=== PATIENT | male | born 1940 | race Caucasian/White ===

== ENCOUNTER → 2016-07-01 | Outpatient (CLI) | payer MEDICARE, OTHER | LOC: RAD 10:53 | PROVIDERS: ATTEND Internal Medicine Medical Oncology | DX: C71.9 Malignant neoplasm of brain, unspecified (principal) | CPT/HCPCS: 70553; A9577 ==

== ENCOUNTER → 2017-03-03 | Outpatient (CLI) | payer MEDICARE, OTHER ==
--- NOTE | 2017-03-03 13:26 | RADIOLOGY REPORT (SQ) ---
EXAM DESCRIPTION: MRI HEAD COMBO COMPLETED DATE/TIME: 03/03/2017 11:08 am REASON FOR STUDY: MALIGNANT NEOPLASM OF BRAIN C71.9 MALIGNANT NEOPLASM OF BRAIN, UNSPECIFIED Grade 4 GBM COMPARISON: 03/24/2008, 01/02/2015, 11/06/2015, 07/01/2016 TECHNIQUE: Multiplanar imaging includes noncontrasted T1, T2, FLAIR, diffusion with ADC map and post gadolinium contrast T1 sequences. Images stored on PACS. CONTRAST TYPE AND DOSE: 10 mL Multihance. RENAL FUNCTION: Estimated GFR 58 LIMITATIONS: None. FINDINGS: ANATOMY: No congenital anomalies. Normal vascular flow voids. Pituitary fossa normal. CSF SPACES: Normal in size and contour. No hemorrhage. CEREBRUM: Post left posterior temporal/ parietal craniotomy with a 4 x 3.4 cm operative cavity with c ystic encephalomalacia. Along the deep aspect of the cavity, there is thin rim contrast enhancement, similar compared to 07/01/2016. This is best shown on axial images 14-16 and coronal image 31. Overa ll appearance of the operative cavity and surrounding FLAIR/ T2 signal from gliosis as compared to 07/01/2016. Remainder of the brain parenchyma is otherwise unremarkable. No other masses or enhancement. No hem orrhage. No midline shift. POSTERIOR FOSSA: No signal alteration. No hemorrhage. No edema, masses, or mass effect. Internal andra tory canals, cerebellopontine angles, mastoids normal. No enhancing lesions. No abnormal enhancement post contrast. DIFFUSION IMAGING: Negative for acute or subacute infarction. ORBITS: No masses. Globes normal. PARANASAL SINUSES: No fluid levels. Mucosa normal. OTHER: No other significant finding. IMPRESSION: Left posterior temporal/parietal operative cavity within the lobe cyst along the deep as pect. This is similar compared to 07/01/2016 EVIDENCE OF ACUTE STROKE: NO. TECHNICAL DOCUMENTATION: JOB ID: [id number] [employer]- All Rights Reserved
== END ==
LOC: RAD 10:02
PROVIDERS: ATTEND Internal Medicine Medical Oncology
DX: C71.9 Malignant neoplasm of brain, unspecified (principal)
CPT/HCPCS: 82565; 70553; A9577

== ENCOUNTER → 2017-07-08 | Outpatient (CLI) | payer MEDICARE, OTHER ==
--- NOTE | 2017-07-08 13:36 | RADIOLOGY REPORT (SQ) ---
EXAM DESCRIPTION: MRI HEAD COMBO COMPLETED DATE/TIME: 07/08/2017 12:58 pm REASON FOR STUDY: C71.9 MALIGNANT NEOPLASM OF BRAIN, UNSPECIFIED C71.9 MALIGNANT NEOPLASM OF BRAIN, UNSPECIFIED COMPARISON: 03/03/2017. 2017. TECHNIQUE: Multiplanar imaging includes noncontrasted T1, T2, FLAIR, diffusion with ADC map and post gadolinium contrast T1 sequences. Images stored on PACS. CONTRAST TYPE AND DOSE: 10 mL MultiHance RENAL FUNCTION: GFR 53 LIMITATIONS: None. FINDINGS: ANATOMY: No anomalies. Normal vascular flow voids. Pituitary fossa normal. CSF SPACES: Normal in size and contour. No hemorrhage. CEREBRUM: Left resection cavity measures 4 x 4.7 cm AP by transverse, fairly similar appearance yolanda red to prior. On most sequences, this is close to CSF intensity. There is some faint peripheral/ th in septal enhancement superiorly which looks relatively stable. No developing lesions. No increasin g mass effect on adjacent tissues. Adjacent high T2 signal in the white matter looks similar. POSTERIOR FOSSA: No signal alteration. No hemorrhage. No edema, masses, or mass effect. Internal andra tory canals, cerebellopontine angles, mastoids normal. No enhancing lesions. No abnormal enhancement post contrast. DIFFUSION IMAGING: Negative for acute or subacute infarction. ORBITS: No masses. Globes normal. PARANASAL SINUSES: No fluid levels. Mucosa normal. OTHER: No other significant finding. IMPRESSION: 1. Chronic resection changes in the left cerebrum. Relatively similar size of the resec tion cavity with minimal faint peripheral persistent none progressive enhancement. No new lesions. No developing mass effect or shift. EVIDENCE OF ACUTE STROKE: NO. TECHNICAL DOCUMENTATION: JOB ID: [id number] [employer]- All Rights Reserved Reading location - IP/workstation name: [email or web address]
== END ==
LOC: RAD 14:15
PROVIDERS: ATTEND Internal Medicine Medical Oncology
DX: C71.9 Malignant neoplasm of brain, unspecified (principal)
CPT/HCPCS: 82565; 70553; A9577

== ENCOUNTER → 2017-11-03 | Outpatient (CLI) | payer MEDICARE, OTHER ==
--- NOTE | 2017-11-03 14:15 | RADIOLOGY REPORT (SQ) ---
EXAM DESCRIPTION: MRI HEAD COMBO COMPLETED DATE/TIME: 11/03/2017 1:18 pm REASON FOR STUDY: C71.9 MALIGNANT NEOPLASM OF BRAIN, UNSPECIFIED C71.9 MALIGNANT NEOPLASM OF BRAIN, UNSPECIFIED COMPARISON: MRI brain 03/24/2008, 11/06/2015, 03/03/2017, 07/08/2017 TECHNIQUE: Multiplanar imaging includes noncontrasted T1, T2, FLAIR, diffusion with ADC map and post gadolinium contrast T1 sequences. Images stored on PACS. CONTRAST TYPE AND DOSE: 15 mL Dotarem. RENAL FUNCTION: Estimated GFR 58 LIMITATIONS: None. FINDINGS: ANATOMY: No anomalies. Normal vascular flow voids. Pituitary fossa normal. CSF SPACES: Normal in size and contour. No hemorrhage. CEREBRUM: Old left parietal craniotomy with fluid-filled cystic encephalomalacia in the left parietal lobe. There is minimal hemosiderin staining around the periphery of the cavity, and minimal thin ri m contrast enhancement. On today's study, the area of cystic encephalomalacia deep to the craniotomy measures 5.2 x 5.2 cm in size (was 4.8 x 4.6 cm on 03/03/2017, was 4.2 x 3.3 cm on 11/06/2015, was 2.4 x 2 cm on immediate postoperative MRI 03/24/2008). There is increased FLAIR/T2 signal in the parenchyma adjacent to the left parietal cystic encephaloma lacia, either post radiation change or gliosis. This is similar compared to 07/08/2017, 03/13/2017 and 11/06/2015. POSTERIOR FOSSA: No signal alteration. No hemorrhage. No edema, masses, or mass effect. Internal andra tory canals, cerebellopontine angles, mastoids normal. No enhancing lesions. No abnormal enhancement post contrast. DIFFUSION IMAGING: Negative for acute or subacute infarction. ORBITS: No masses. Globes normal. PARANASAL SINUSES: No fluid levels. Mucosa normal. OTHER: No other significant finding. IMPRESSION: Cystic encephalomalacia left parietal lobe, with surrounding gliosis or edema. Size of the cystic cavity has slowly increased over the series of exams EVIDENCE OF ACUTE STROKE: NO. TECHNICAL DOCUMENTATION: JOB ID: [id number] [employer]- All Rights Reserved Reading location - IP/workstation name: [email or web address]
== END ==
LOC: RAD 14:57
PROVIDERS: ATTEND Internal Medicine Medical Oncology
DX: C71.9 Malignant neoplasm of brain, unspecified (principal); G93.89 Other specified disorders of brain
CPT/HCPCS: 82565; 70553; A9576

== ENCOUNTER 2017-11-18 03:50 | Emergency (ER) | payer MEDICARE, OTHER ==
[2017-11-18 03:56] VITALS: BP 127/60
--- NOTE | 2017-11-18 04:36 | RADIOLOGY REPORT (SQ) ---
EXAM DESCRIPTION: CT HEAD WITHOUT IV CONTRAST COMPLETED DATE/TME: 11/18/2017 00:00 CLINICAL HISTORY: 77 years Male, injury on thinners COMPARISON: 9.11.18 TECHNIQUE: No contrast. Coronal and sagittal reformat. This exam was performed according to our departmental dose-optimization program, which includes automated exposure control, adjustment of the mA and/or kV according to patient size and/or use of iterative reconstruction technique. FINDINGS: No hemorrhage. 5.5 cm chronic cystic encephalomalacia pattern of the left parietal lobe, moderate white matter microangiopathy, mild parenchymal volume loss, atherosclerosis, left parietal craniotomy. No midline shift. Brain and extra-axial structures appear otherwise intact. Stable. IMPRESSION: No acute findings.
[2017-11-18] MEDS ORDERED: ACETAMINOPHEN 325 MG TABLET PO ONE (05:21)
[2017-11-18] MEDS ORDERED: LIDOCAINE 5% (700 MG) TRANSDERMAL ADH..PATCH TP ONE (05:21)
--- NOTE | 2017-11-18 05:36 | RADIOLOGY REPORT (SQ) ---
EXAM DESCRIPTION: XR SHOULDER 2 OR MORE VIEWS COMPLETED DATE/TME: 11/18/2017 03:55 CLINICAL HISTORY: 77 years Male, fall COMPARISON: 3.4.16 Findings: Fracture-deformity of the distal left clavicular shaft with palmar moderate superior angulation, relatively new compared with prior available radiographs from April 27, 2015. Bones, joints, and soft tissues of the LEFT XR SHOULDER 3 VIEWS appear otherwise intact. IMPRESSION: Fracture-deformity of the left distal clavicular shaft, indeterminate age.
--- NOTE | 2017-11-18 05:45 | RADIOLOGY REPORT (SQ) ---
Left elbow four view on 11/18/2017 at 5:32 AM CLINICAL INDICATION: Left elbow pain after fall COMPARISON: None FINDINGS: There is diffuse osteopenia. Joint effusion is noted in the elbow. Definite fracture is not visualized but the joint effusion is indicative of occult fracture. Visualized joints are well aligned. IMPRESSION: Joint effusion in the elbow indicative of occult fracture. Most likely location in this age patient would be of the radial head.
--- NOTE | 2017-11-18 06:02 | ER Document Report ---
ED General - General Chief Complaint: Fall Injury Stated Complaint: LEFT SHOULDER PAIN Time Seen by Provider: 11/18/17 04:02 TRAVEL OUTSIDE OF THE [place] IN LAST 30 DAYS: No - HPI Patient complains to provider of: Fall Notes: Patient coming in for evaluation of a fall. Patient states he was walking the stairs with his walker lost his balance fell down landing on his left side currently complaining of left shoulder pain left elbow pain. Patient also does have abrasion to the front of his head did not tell the nursing staff that he was on blood thinning medications protocol and CT head and x-rays upon further evaluation patient states he is on aspirin. Patient denies any loss of consciousness syncopal episode chest pain abdominal pain before or after the fall. Resting comfortably upon my evaluation. - Related Data Allergies/Adverse Reactions: simvastatin [From Zocor] Allergy (Unknown, Verified 04/26/15 12:15) Past Medical History - Social History Smoking Status: Unknown if Ever Smoked Family History: Reviewed & Not Pertinent Patient has suicidal ideation: No Patient has homicidal ideation: No - Past Medical History Cardiac Medical History: Reports: Hx Coronary Artery Disease - 5 or 6 stents most recently in 2004, Hx Heart Attack - x2, Hx Hypercholesterolemia, Hx Hypertension Neurological Medical History: Reports: Hx Cerebrovascular Accident - History of TIA Endocrine Medical History: Reports: Hx Diabetes Mellitus Type 2, Hx Hypothyroidism Renal/ Medical History: Reports: Hx Benign Prostatic Hyperplasia. Denies: Hx Peritoneal Dialysis Malignancy Medical History: Reports Hx Brain Cancer - glioblastoma GI Medical History: Reports: Hx Gastroesophageal Reflux Disease Past Surgical History: Reports: Hx Cardiac Catheterization, Hx Cardiac Surgery - stents, Hx Orthopedic Surgery - Immunizations Hx Diphtheria, Pertussis, Tetanus Vaccination: Yes Hx Pneumococcal Vaccination: 11/23/10 Review of Systems - Review of Systems Constitutional: No symptoms reported EENT: No symptoms reported Cardiovascular: No symptoms reported Respiratory: No symptoms reported Gastrointestinal: No symptoms reported Genitourinary: No symptoms reported Male Genitourinary: No symptoms reported Musculoskeletal: Other - Shoulder elbow pain Skin: No symptoms reported Hematologic/Lymphatic: No symptoms reported Neurological/Psychological: No symptoms reported Physical Exam - Vital signs Vitals: Temp Pulse Resp BP Pulse Ox 97.8 F 69 20 127/60 H 95 11/18/17 03:55 11/18/17 03:55 11/18/17 03:55 11/18/17 03:55 11/18/17 03:55 Interpretation: Normal - General General appearance: Appears well, Alert - HEENT Head: Normocephalic. No: Atraumatic - Abrasion to the left forehead Eyes: Normal Conjunctiva: Normal Cornea: Normal Pupils: PERRL Ears: Other - Hematoma of the left pinna External canal: Normal Tympanic membrane: Normal Nasal: Normal Pharynx: Normal Neck: Normal Notes: Tenderness to palpation of the left clavicle region lateral - Respiratory Respiratory status: No respiratory distress Chest status: Nontender Breath sounds: Normal Chest palpation: Normal - Cardiovascular Rhythm: Regular Heart sounds: Normal auscultation Murmur: No - Abdominal Inspection: Normal Distension: No distension Bowel sounds: Normal Tenderness: Nontender Organomegaly: No organomegaly - Back Back: Normal, Nontender - Extremities General upper extremity: Normal color, Normal ROM, Normal temperature. No: Normal inspection - Tenderness palpation of the left elbow General lower extremity: Normal inspection, Nontender, Normal color, Normal ROM , Normal temperature - Neurological Neuro grossly intact: Yes Cognition: Normal Orientation: AAOx4 Daya Coma Scale Eye Opening: Spontaneous Daya Coma Scale Verbal: Oriented Daya Coma Scale Motor: Obeys Commands Ewing Coma Scale Total: 15 Speech: Normal Motor strength normal: LUE, RUE, LLE, RLE Sensory: Normal - Psychological Associated symptoms: Normal affect, Normal mood - Skin Skin Temperature: Warm Skin Moisture: Dry Skin Color: Normal Course - Re-evaluation Re-evalutation: 11/18/17 06:08 CT of the head negative for any acute traumatic findings. Shoulder x-ray shows a clavicle fracture looks to be healing with good callus formation however personal read cannot rule out an acute illness patient is tender patient does have a cell sign on the elbow x-ray cannot rule out an occult fracture. This information was discussed with the patient patient is to follow-up with his orthopedic doctor on Thursday for his leg pain states that he will take images to his orthopedics at that time. Patient will be given a CD sling will be provided at this time for comfort for the patient patient will be discharged home. - Vital Signs Vital signs: Temp Pulse Resp BP Pulse Ox 97.8 F 69 20 127/60 H 95 11/18/17 03:55 11/18/17 03:55 11/18/17 03:55 11/18/17 03:55 11/18/17 03:55 Discharge - Discharge Clinical Impression: Hematoma of pinna, Facial abrasion, Clavicle fracture, Possible occult fracture left elbow Condition: Good Disposition: HOME, SELF-CARE Instructions: Abrasions of the Face ([facility]) Additional Instructions: CT scan of your head today does not show any acute traumatic findings. X-ray of your shoulder reveals a clavicle fracture that looks to be healing and old although a new component cannot be ruled out also the x-ray of the elbow reveal signs of a possible occult fracture or small fracture that we cannot see on x-ray at this time. We will place you in a shoulder sling she can wear for comfort for the next 7-10 days recommend taking Tylenol for pain control follow- up with your orthopedic physician or primary disabilities caregiver for repeat x-rays in the next 7-10 days. Return to ER for any concerning issues please place triple antibiotic ointment on your abrasions. Referrals: BG LYONS PA-C [Primary Care Provider] - Follow up as needed
== END 2017-11-18 06:37 | disposition home or self-care (01) ==
LOC: ER 03:50
DX: S00.81XA Abrasion of other part of head, initial encounter (principal); S42.002A Fracture of unspecified part of left clavicle, initial encounter for closed fracture; M25.522 Pain in left elbow; W01.0XXA Fall on same level from slipping, tripping and stumbling without subsequent striking against object, initial encounter; I25.10 Atherosclerotic heart disease of native coronary artery without angina pectoris; E11.9 Type 2 diabetes mellitus without complications; E03.9 Hypothyroidism, unspecified; Z86.73 Personal history of transient ischemic attack (TIA), and cerebral infarction without residual deficits; I25.2 Old myocardial infarction; Z85.841 Personal history of malignant neoplasm of brain
CPT/HCPCS: 99284; 73080; 73030; 70450; A9270

== ENCOUNTER → 2018-02-03 | Outpatient (CLI) | payer MEDICARE, OTHER ==
--- NOTE | 2018-02-03 14:14 | RADIOLOGY REPORT (SQ) ---
EXAM DESCRIPTION: MRI HEAD COMBO COMPLETED DATE/TIME: 02/03/2018 1:20 pm REASON FOR STUDY: C71.9 MALIGNANT NEOPLASM OF BRAIN,UNSPECIFIED C71.9 MALIGNANT NEOPLASM OF BRAIN, UNSPECIFIED COMPARISON: 11/03/2017, 07/08/2017, 03/03/2017, 07/01/2016, 05/08/2015, 12/05/2010, 01/04/2009 TECHNIQUE: Multiplanar imaging includes noncontrasted T1, T2, FLAIR, diffusion with ADC map and post gadolinium contrast T1 sequences. Images stored on PACS. CONTRAST TYPE AND DOSE: 10 mL Dotarem. RENAL FUNCTION: GFR 48 LIMITATIONS: None. FINDINGS: ANATOMY: No anomalies. Normal vascular flow voids. Pituitary fossa normal. CSF SPACES: Normal in size and contour. No hemorrhage. CEREBRUM: Old left parietal craniotomy with fluid-filled cystic encephalomalacia in the left parietal region, measuring 5 cm craniocaudad by 5 point 2 cm AP x 5.2 cm transverse. This is similar compare d to 11/03/2017. On the post contrasted images, minimal peripheral rim enhancement is present similar compared to prior exams. There is stable surrounding gliosis in the left posterior temporal and par ietal and posterior frontal regions. Remainder of the supratentorial brain is otherwise unremarkable. No hemorrhage. No mass effect or m idline shift. POSTERIOR FOSSA: No signal alteration. No hemorrhage. No edema, masses, or mass effect. Internal andra tory canals, cerebellopontine angles, mastoids normal. No enhancing lesions. No abnormal enhancement post contrast. DIFFUSION IMAGING: Negative for acute or subacute infarction. ORBITS: No masses. Globes normal. PARANASAL SINUSES: No fluid levels. Mucosa normal. OTHER: No other significant finding. IMPRESSION: Stable postoperative changes compared to 11/03/2017. EVIDENCE OF ACUTE STROKE: NO. TECHNICAL DOCUMENTATION: JOB ID: [id number] [employer]- All Rights Reserved Reading location - IP/workstation name: [email or web address]
== END ==
LOC: RAD 13:17
PROVIDERS: ATTEND Internal Medicine Medical Oncology
DX: C71.9 Malignant neoplasm of brain, unspecified (principal)
CPT/HCPCS: 82565; 70553; A9576

== ENCOUNTER → 2018-07-29 | Outpatient (CLI) | payer MEDICARE, OTHER ==
--- NOTE | 2018-07-29 13:29 | RADIOLOGY REPORT (SQ) ---
EXAM DESCRIPTION: MRI HEAD COMBO COMPLETED DATE/TIME: 07/29/2018 1:04 pm REASON FOR STUDY: C71.9 MALIGNANT NEOPLASM OF BRAIN, UNSPECIFIED C71.9 MALIGNANT NEOPLASM OF BRAIN, UNSPECIFIED COMPARISON: 02/03/2018, 07/08/2017, and 03/03/2017. TECHNIQUE: Multiplanar imaging includes noncontrasted T1, T2, FLAIR, diffusion with ADC map and post gadolinium contrast T1 sequences. Images stored on PACS. CONTRAST TYPE AND DOSE: 15 mL Dotarem. RENAL FUNCTION: Not indicated. ACR Type II contrast agent associated with few, if any, unconfounded cases of NSF LIMITATIONS: None. FINDINGS: ANATOMY: No anomalies. Normal vascular flow voids. Pituitary fossa normal. CSF SPACES: Normal in size and contour. No hemorrhage. CEREBRUM: Again seen are surgical changes in the posterior left parietal lobe with fluid filled resec tion cavity, unchanged in size and appearance. Very minimal rim enhancement unchanged. Minimal glio sis in the adjacent white matter. No other significant findings. POSTERIOR FOSSA: No signal alteration. No hemorrhage. No edema, masses, or mass effect. Internal andra tory canals, cerebellopontine angles, mastoids normal. No enhancing lesions. No abnormal enhancement post contrast. DIFFUSION IMAGING: Negative for acute or subacute infarction. ORBITS: No masses. Globes normal. PARANASAL SINUSES: No fluid levels. Mucosa normal. OTHER: No other significant finding. IMPRESSION: STABLE SURGICAL CHANGES IN THE POSTERIOR LEFT PARIETAL LOBE. NO EVIDENCE OF RESIDUAL OR RECURRENT TUMOR. NO OTHER SIGNIFICANT FINDINGS. EVIDENCE OF ACUTE STROKE: NO. TECHNICAL DOCUMENTATION: JOB ID: [id number] [employer]- All Rights Reserved Reading location - IP/workstation name: [email or web address]
== END ==
LOC: RAD 12:00
PROVIDERS: ATTEND Internal Medicine Medical Oncology
DX: C71.9 Malignant neoplasm of brain, unspecified (principal)
CPT/HCPCS: 70553; 82565

== ENCOUNTER → 2018-12-02 | Outpatient (CLI) | payer MEDICARE, OTHER ==
--- NOTE | 2018-12-02 11:42 | RADIOLOGY REPORT (SQ) ---
EXAM DESCRIPTION: MRI HEAD COMBO COMPLETED DATE/TIME: 12/02/2018 11:07 am REASON FOR STUDY: MALIGNANT NEOPLASM OF BRAIN (C71.9) C71.9 MALIGNANT NEOPLASM OF BRAIN, UNSPECIFIE D COMPARISON: MRI brain 07/29/2018, 02/03/2018, 07/01/2016, 10/27/2015, 01/09/2015, 11/15/2013, 11/16/2012, TECHNIQUE: Multiplanar imaging includes noncontrasted T1, T2, FLAIR, diffusion with ADC map and post gadolinium contrast T1 sequences. Images stored on PACS. CONTRAST TYPE AND DOSE: 15 mL Dotarem. RENAL FUNCTION: Not indicated. ACR Type II contrast agent associated with few, if any, unconfounded cases of NSF LIMITATIONS: None. FINDINGS: ANATOMY: No anomalies. Normal vascular flow voids. Pituitary fossa normal. CSF SPACES: Normal in size and contour. No hemorrhage. CEREBRUM: Post left frontoparietal craniotomy. There is focal encephalomalacia in the left posterior frontal/parietal region with an operative cavity 4.4 x 4.2 x 5 cm in size. No surrounding significa nt gliosis or edema. No contrast enhancement along the periphery of the operative cavity or deep to the craniotomy flap. Remainder of the brain demonstrates minimal increased FLAIR/T2 signal in the posterior corpus callosu m likely related to prior brain radiation. No MR evidence of acute ischemic change, acute intracrani al hemorrhage, mass effect, or midline shift. POSTERIOR FOSSA: No signal alteration. No hemorrhage. No edema, masses, or mass effect. Internal andra tory canals, cerebellopontine angles, mastoids normal. No enhancing lesions. No abnormal enhancement post contrast. DIFFUSION IMAGING: Negative for acute or subacute infarction. ORBITS: No masses. Globes normal. PARANASAL SINUSES: No fluid levels. Mucosa normal. OTHER: No other significant finding. IMPRESSION: Left posterior frontal/parietal operative cavity. No findings worrisome for recurrent/r esidual tumor EVIDENCE OF ACUTE STROKE: NO. TECHNICAL DOCUMENTATION: JOB ID: [id number] [employer]- All Rights Reserved Reading location - IP/workstation name: [email or web address]
== END ==
LOC: RAD 09:56
PROVIDERS: ATTEND Internal Medicine Medical Oncology
DX: C71.9 Malignant neoplasm of brain, unspecified (principal)
CPT/HCPCS: 70553; A9576

== ENCOUNTER → 2019-06-02 | Outpatient (CLI) | payer MEDICARE, OTHER ==
--- NOTE | 2019-06-02 14:13 | RADIOLOGY REPORT (SQ) ---
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 TECHNIQUE: Multiplanar imaging includes noncontrasted T1, T2, FLAIR, diffusion with ADC map and post gadolinium contrast T1 sequences. Images stored on PACS. CONTRAST TYPE AND DOSE: 15 mL Dotarem. RENAL FUNCTION: Not indicated. ACR Type II contrast agent associated with few, if any, unconfounded cases of NSF LIMITATIONS: None. FINDINGS: ANATOMY: No anomalies. Normal vascular flow voids. Pituitary fossa normal. CSF SPACES: Normal in size and contour. No hemorrhage. CEREBRUM: Sulci and gyri normal in size and contour. Stable surgical changes in the posterior left p arietal lobe with postoperative fluid collection. Mild gliosis. No evidence of hemorrhage, mass, or extraaxial fluid collection. No abnormal enhancement post contrast. POSTERIOR FOSSA: No signal alteration. No hemorrhage. No edema, masses, or mass effect. Internal andra tory canals, cerebellopontine angles, mastoids normal. No enhancing lesions. No abnormal enhancement post contrast. DIFFUSION IMAGING: Negative for acute or subacute infarction. ORBITS: No masses. Globes normal. PARANASAL SINUSES: No fluid levels. Mucosa normal. OTHER: No other significant finding. IMPRESSION: STABLE SURGICAL CHANGES IN THE POSTERIOR LEFT PARIETAL LOBE WITH STABLE POSTOPERATIVE FL UID COLLECTION AND MILD GLIOSIS. NO EVIDENCE OF RESIDUAL OR RECURRENT TUMOR. NO OTHER SIGNIFICANT F INDINGS. EVIDENCE OF ACUTE STROKE: NO. TECHNICAL DOCUMENTATION: JOB ID: [id number] [employer]- All Rights Reserved Reading location - IP/workstation name: [email or web address]
== END ==
LOC: RAD 12:20
PROVIDERS: ATTEND Psychiatry & Neurology Neurology
DX: C71.3 Malignant neoplasm of parietal lobe (principal)
CPT/HCPCS: 70553; A9576

== ENCOUNTER → 2019-12-08 | Outpatient (CLI) | payer MEDICARE, OTHER ==
--- NOTE | 2019-12-08 13:11 | RADIOLOGY REPORT (SQ) ---
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 TECHNIQUE: Multiplanar imaging includes noncontrasted T1, T2, FLAIR, diffusion with ADC map and post gadolinium contrast T1 sequences. Images stored on PACS. CONTRAST TYPE AND DOSE: 10 mL Prohance. RENAL FUNCTION: Not indicated. ACR Type II contrast agent associated with few, if any, unconfounded cases of NSF LIMITATIONS: None. FINDINGS: ANATOMY: No anomalies. Normal vascular flow voids. Pituitary fossa normal. CSF SPACES: Normal in size and contour. No hemorrhage. CEREBRUM: Sulci and gyri normal in size and contour. Normal white matter signal on FLAIR imaging. St able surgical changes in the posterior left parietal lobe with postoperative fluid collection. Mild scoliosis in the adjacent white matter. No evidence of hemorrhage, mass, or extraaxial fluid collect ion. No abnormal enhancement post contrast. POSTERIOR FOSSA: No signal alteration. No hemorrhage. No edema, masses, or mass effect. Internal andra tory canals, cerebellopontine angles, mastoids normal. No enhancing lesions. No abnormal enhancement post contrast. DIFFUSION IMAGING: Negative for acute or subacute infarction. ORBITS: No masses. Globes normal. PARANASAL SINUSES: No fluid levels. Mucosa normal. OTHER: No other significant finding. IMPRESSION: STABLE MRI OF THE BRAIN WITHOUT AND WITH INTRAVENOUS GADOLINIUM CONTRAST. STABLE SURGIC AL CHANGES IN THE POSTERIOR LEFT PARIETAL LOBE WITH POSTOPERATIVE FLUID COLLECTION AND MILD GLIOSIS. NO EVIDENCE OF RESIDUAL OR RECURRENT TUMOR. NO OTHER SIGNIFICANT FINDINGS. EVIDENCE OF ACUTE STROKE: NO. TECHNICAL DOCUMENTATION: JOB ID: [id number] [employer]- All Rights Reserved Reading location - IP/workstation name: [email or web address]
== END ==
LOC: RAD 12:03
PROVIDERS: ATTEND Nurse Practitioner Adult Health
DX: C71.9 Malignant neoplasm of brain, unspecified (principal)
CPT/HCPCS: 70553; A9576

== ENCOUNTER 2019-12-27 07:04 | Day surgery (SDC) | payer MEDICARE, OTHER ==
[~2019-12-27 07:04] MED LIST: FENTANYL CITRATE INJ/PF 100 MCG/2 ML AMPUL ONE; KETOROLAC TROMETHAMINE 0.45% 4 DROP/0.4 ML DROPERETTE OS PRN; MIDAZOLAM 2 MG/2 ML INJ ONE; ONDANSETRON HCL INJ/PF 4 MG/2 ML SDV ONE
[2019-12-27] MEDS: CYCLOPENTOLATE 0.2%/PHENYLEPHRINE 1% OPH SOLN 2 ML OS PRN ×3 (07:56→08:05)
[2019-12-27] MEDS: TROPICAMIDE 1% OPH SOLN 15 ML OS PRN ×3 (07:56→08:05)
[2019-12-27] MEDS: TETRACAINE HCL 0.5% OPH SOLN 4 ML OS PRN ×3 (07:56→08:27)
[2019-12-27] MEDS: BESIFLOXACIN HCL 0.6% OPH SUSP 5 ML BOTTLE OS PRN ×4 (07:56→08:47)
[2019-12-27] MEDS: CHONDR SU A NA/HYALUR INTRAOC KIT (SURGICARE) ONE ×2 (08:34→08:35)
[2019-12-27] MEDS: LIDOCAINE 1%/PHENYLEPHRINE 1.5% 1 ML VIAL ONE ×2 (08:34→08:35)
[2019-12-27] MEDS: EPINEPHRINE INJ/PF 1 MG/1 ML AMPULE ONE ×2 (08:34→08:35)
[2019-12-27] MEDS: DORZOLAMIDE HCL 2%/TIMOLOL MALEAT 0.5% OPH SOLN 10 ML OS PRN ×2 (08:35→08:47)
[2019-12-27] MEDS: PREDNISOLONE ACETATE 1% OPH SUSP 5 ML OS PRN ×2 (08:35→08:47)
--- NOTE | 2019-12-27 13:44 | Operative Report ---
Operative Report-[facility] Operative Report: DATE OF SURGERY: 12/27/2019 PREOPERATIVE DIAGNOSIS: Cataracts, left eye POSTOPERATIVE DIAGNOSIS: Cataract, left eye OPERATION: Cataract extraction with insertion of an IOL of the left eye. Intraocular Lens Model: [20.5 SN 60 WF] Underwent surgery for difficulty seeing medicine bottles SURGEON: Brett Stroud MD ANESTHESIA: Topical PROCEDURE: After obtaining appropriate consent, the patient's left eye was prepped and draped in a sterile fashion as well as the surgeon in the sterile manner and cataract surgery was started. First a paracentesis blade was used to make a side-port incision. Viscoelastic was used to inflate the anterior chamber. Next a 2.4 mm incision was made with a 2.4 mm blade, clear corneal temporarily. A continuous capsulorrhexis was made using a cystotome and Utrata forceps. Following this hydrodissection was carried out to make the lens fully loose and mobile and it was rotated 90 degrees. Following this, a divide and conquer technique was used to phacoemulsify the lens. The remaining cortex was removed with an irrigation/aspiration. Provisc was instilled into the capsular bag to inflate the bag.The intraocular lens was placed. The remaining viscoelastic material was removed with irrigation/aspiration. Following this, the incision was found to be watertight. Besivance and Cosopt was instilled into the eye and a protective shield was placed over the eye. The patient was returned to the postoperative recovery in a stable condition.
== END 2019-12-27 09:27 | disposition home or self-care (01) ==
LOC: SC 07:04
PROVIDERS: ATTEND Internal Medicine
DX: H25.812 Combined forms of age-related cataract, left eye (principal); H57.03 Miosis; E11.36 Type 2 diabetes mellitus with diabetic cataract; E03.9 Hypothyroidism, unspecified; I25.2 Old myocardial infarction; E78.00 Pure hypercholesterolemia, unspecified; Z87.891 Personal history of nicotine dependence; Z79.82 Long term (current) use of aspirin; E66.9 Obesity, unspecified; I10 Essential (primary) hypertension; I25.10 Atherosclerotic heart disease of native coronary artery without angina pectoris
CPT/HCPCS: 66984; 82962; V2632; J2250; J3490 ×2; A9270; J0171; J2405; J3010

== ENCOUNTER 2020-01-26 10:35 | Day surgery (SDC) | payer MEDICARE, OTHER ==
[~2020-01-26 10:35] MED LIST changes: +CHONDR SU A NA/HYALUR INTRAOC KIT (SURGICARE) ONE; +DORZOLAMIDE HCL 2%/TIMOLOL MALEAT 0.5% OPH SOLN 10 ML OD PRN; +EPINEPHRINE INJ/PF 1 MG/1 ML AMPULE ONE; -FENTANYL CITRATE INJ/PF 100 MCG/2 ML AMPUL ONE; +KETOROLAC TROMETHAMINE 0.45% 4 DROP/0.4 ML DROPERETTE OD PRN; -KETOROLAC TROMETHAMINE 0.45% 4 DROP/0.4 ML DROPERETTE OS PRN; +LIDOCAINE 1%/PHENYLEPHRINE 1.5% 1 ML VIAL ONE; -MIDAZOLAM 2 MG/2 ML INJ ONE; -ONDANSETRON HCL INJ/PF 4 MG/2 ML SDV ONE; +PREDNISOLONE ACETATE 1% OPH SUSP 5 ML OD PRN
[2020-01-26] MEDS: BESIFLOXACIN HCL 0.6% OPH SUSP 5 ML BOTTLE OD PRN ×3 (11:08→11:59)
[2020-01-26] MEDS: TROPICAMIDE 1% OPH SOLN 15 ML OD PRN ×3 (11:08→11:28)
[2020-01-26] MEDS: CYCLOPENTOLATE 0.2%/PHENYLEPHRINE 1% OPH SOLN 2 ML OD PRN ×3 (11:08→11:28)
[2020-01-26] MEDS: TETRACAINE HCL 0.5% OPH SOLN 4 ML OD PRN ×3 (11:09→11:41)
[2020-01-26] MEDS ORDERED: MIDAZOLAM 2 MG/2 ML INJ ONE (11:24)
[2020-01-26] MEDS ORDERED: POVIDONE-IODINE 5% OPH PREP SOLN 30 ML ONE (11:32)
[2020-01-26] MEDS ORDERED: BALANCED SALT IRRIG SOLN COMB2 15 ML BOTTLE ONE (11:32)
--- NOTE | 2020-01-26 12:13 | Operative Report ---
Operative Report-[facility] Operative Report: DATE OF SURGERY: 01/26/20 PREOPERATIVE DIAGNOSIS: Cataract, right eye POSTOPERATIVE DIAGNOSIS: Cataract, right eye OPERATION: Cataract extraction with insertion of an IOL of the right eye. Intraocular Lens Model: [20.0 SN 60 WF] Patient underwent surgery for difficulty seeing the television SURGEON: Brett Stroud MD ANESTHESIA: Topical PROCEDURE: After obtaining appropriate consent, the patient's right eye was prepped and draped in a sterile fashion as well as the surgeon in the sterile manner and cataract surgery was started. First a paracentesis blade was used to make a side-port incision. Viscoelastic was used to inflate the anterior chamber. Next a 2.4 mm incision was made with a 2.4 mm blade, clear corneal temporarily. A continuous capsulorrhexis was made using a cystotome and Utrata forceps. Following this hydrodissection was carried out to make the carie fully loose and mobile and it was rotated. Following this, a divide and conquer technique was used to phacoemulsify the carie. The remaining cortex was removed with an irrigation/aspiration. Provisc was instilled into the capsular bag to inflate the bag. The intraocular lens was placed. The remaining viscoelastic material was removed with irrigation/aspiration. Following this, the incision was found to be watertight. Besivance and Cosopt was instilled into the eye and a protective shield was placed over the eye. The patient was reurned to the postoperative recovery in a stable condition.
== END 2020-01-26 12:45 | disposition home or self-care (01) ==
LOC: SC 10:35
PROVIDERS: ATTEND Internal Medicine
DX: H25.811 Combined forms of age-related cataract, right eye (principal); H57.03 Miosis; Z96.1 Presence of intraocular lens; E11.36 Type 2 diabetes mellitus with diabetic cataract; E03.9 Hypothyroidism, unspecified; I25.2 Old myocardial infarction; E78.00 Pure hypercholesterolemia, unspecified; Z87.891 Personal history of nicotine dependence; Z79.82 Long term (current) use of aspirin; Z79.899 Other long term (current) drug therapy
CPT/HCPCS: 66984; 82962; V2632; J2250; J3490 ×3; A9270; J0171